=== PATIENT | female | born 2000 | race Native Hawaiian/Other Pacific Islander ===

== ENCOUNTER 2020-12-09 16:27 | Emergency (ER) | payer OTHER ==
[~2020-12-09] VITALS: Ht 154.9 cm; Wt 44.0 kg
[2020-12-09 16:42] VITALS: BP 100/68; TEMP 98.4
== END 2020-12-09 16:58 | disposition home or self-care (01) ==
LOC: ED 16:27
DX: Z53.21 Procedure and treatment not carried out due to patient leaving prior to being seen by health care provider (principal); Z87.828 Personal history of other (healed) physical injury and trauma
CPT/HCPCS: 99281

== ENCOUNTER 2022-09-06 16:45 | Emergency (ER) | payer OTHER ==
[~2022-09-06] VITALS: Ht 154.9 cm; Wt 58.1 kg
[2022-09-06 17:16] LABS: PLATELET COUNT 282 K/uL (152-353)
[2022-09-06 17:21] LABS: POTASSIUM 4.1 mmol/L (3.6-5.2)
[2022-09-06 17:40] VITALS: BP 121/71; TEMP 98.2
== END 2022-09-06 17:43 | disposition home or self-care (01) ==
LOC: ED 16:45
PROVIDERS: Emergency Medicine
DX: R25.2 Cramp and spasm (principal)
CPT/HCPCS: 80048; 85027; 99283